=== PATIENT | female | born 1955 | race Two or more races ===

== ENCOUNTER 2021-08-30 19:46 | Emergency (ER) | payer MEDICAID, OTHER ==
[~2021-08-30] VITALS: Ht 160 cm; Wt 96.6 kg
[2021-08-30 20:33] LABS: Monocytes # (auto) 0.7 10 ^3/uL (0-1.3); White Blood Cell 7.4 10^3/uL (4.4-10.8)
[2021-08-30 20:42] LABS: Basophils # (auto) 0 10 ^3/uL (0-0.2); Basophils % (auto) 0.7 % (0.0-2.0); Eosinophils # (auto) 0.2 10 ^3/uL (0-0.8); Eosinophils % (auto) 2.2 % (0.0-7.0); Hematocrit 43.5 % (36.0-46.0); Hemoglobin 14.8 g/dL (12.2-16.2); Lymphocytes # (auto) 2.3 10 ^3/uL (0.4-5.4); Lymphocytes % (auto) 31.4 % (10.0-50.0); Mean Corpuscular Volume 82.4 fL (80.0-100.0); Monocytes % (auto) 9.4 % (0.0-12.0); Neutrophils # (auto) 4.2 10 ^3/uL (1.6-8.6); Neutrophils % (auto) 56.3 % (37.0-80.0); Nucleated Red Blood Cells % 0.1 %; Red Blood Cells 5.28 10^6/uL (4.0-5.20); Red Cell Distribution Width 14.1 % (11.8-14.3)
[2021-08-30 20:49] LABS: Partial Thromboplastin Time 24.3 sec (23.6-33.0)
[2021-08-30 20:50] LABS: Albumin 3.9 g/dL (3.4-5.0); Calcium 9.1 mg/dL (8.5-10.1); Magnesium 2.4 mg/dL (1.6-2.6); Potassium 4.2 mmol/L (3.5-5.1)
[2021-08-30 20:55] LABS: BUN/Creatinine Ratio 17.3; Bilirubin, Total 0.3 mg/dL (0.2-1.0); Total Protein 7.5 g/dL (6.4-8.2)
[2021-08-30] MEDS ORDERED: AZIT250T8 PO (23:33)
[2021-08-30] MEDS ORDERED: CEFD300C2 PO (23:33)
[2021-08-31] VITALS: BP 132/78
== END 2021-08-31 00:28 | disposition home or self-care (01) ==
LOC: ER 19:46 → EDBD 19:46 → ER 08-31 00:28
DX: R07.89 Other chest pain (principal); J18.9 Pneumonia, unspecified organism
CPT/HCPCS: 36415; 71045; 80053; 83735; 84484; 85025; 85610; 85730